=== PATIENT | male | born 1935 | race Caucasian/White ===

== ENCOUNTER 2016-07-23 06:51 | Inpatient (IN) | payer MEDICARE ==
[2016-07-12 13:30] LABS: BASOPHILS 0.2 %; BASOPHILS ABSOLUTE 0.01 10/3/uL (0.0-0.16); EOSINOPHILS 1.2 %; EOSINOPHILS ABSOLUTE 0.08 10/3/uL (0.0-0.53); HEMATOCRIT 41.3 % (40.0-51.0); HEMOGLOBIN 12.9 g/dL (13.6-17.8); IMMATURE GRANULOCYTES 0.2 %; IMMATURE GRANULOCYTES ABSOLUTE 0.01 10/3/uL (0.0-0.11); LYMPHOCYTES 29.6 %; LYMPHOCYTES ABSOLUTE 1.95 10/3/uL (0.67-4.30); MEAN CORPUS HGB CONC 31.2 g/dL (32.0-36.0); MEAN CORPUSCULAR HEMOGLOB 24.8 pg (26.0-34.0); MEAN CORPUSCULAR VOLUME 79.3 fL (80-100); MEAN PLATELET VOLUME 11.1 fL (9.2-13.0); MONOCYTES 7.6 %; NEUTROPHILS 61.2 %; NEUTROPHILS ABSOLUTE 4.04 10/3/uL (2.02-8.40); PLATELET COUNT 191 10/3/uL (150-400); RBC DISTRIBUTION WIDTH 16.7 % (12.0-16.0); RED CELL COUNT 5.21 10/6/uL (4.7-6.1); WHITE BLOOD CELLS 6.6 10/3/uL (4.5-10.5)
[2016-07-12 13:32] LABS: MANUAL DIFF NO %
[2016-07-12 13:36] LABS: ASCORBIC ACID (UR NOT ORDER) NEG (NEG); BILIRUBIN, URINE NEGATIVE (NEG); KETONE, URINE NEGATIVE (NEG); LEUKOCYTE ESTERASE(NOT OR NEG (NEG); WBC (NOT ORDERED) (RFLEX) < 1 (0-5)
[2016-07-12 13:39] LABS: INTERNATIONAL NORMAL RATI 1.2 UNITS (-)
[2016-07-12 13:47] LABS: B NATRIURETIC PEPTIDE (BNP) 15.2 PG/ML (< 100.0)
[2016-07-12 13:50] LABS: ALBUMIN 3.9 G/DL (3.5-5.0); ALKALINE PHOSPHATASE 100 U/L (45-117); BUN (BLOOD UREA NITROGEN) 19 MG/DL (6-23); CALCIUM, SERUM 8.9 MG/DL (8.5-10.4); CHLORIDE, SERUM 107 MMOL/L (96-112); CO2 (CARBON DIOXIDE) 28 MMOL/L (24-34); CREATININE 1.75 MG/DL (0.70-1.30); GFR AFRICAN AMERICAN 41 ML/MIN (>=60); GFR NON AFRICAN AMERICAN 35 ML/MIN (>=60); GLOBULIN 3.8 G/DL (2.5-4.1); GLUCOSE, SERUM 146 MG/DL (60-99); POTASSIUM, SERUM 4.7 MMOL/L (3.5-5.3); SGOT(AST) 32 U/L (5-40); SGPT(ALT) 41 U/L (5-65); SODIUM, SERUM 140 MMOL/L (135-148); TOTAL BILIRUBIN 0.4 MG/DL (0-1.2); TOTAL PROTEIN 7.7 G/DL (6.0-8.5)
[2016-07-12 13:54] LABS: GLYCOHEMOGLOBIN (HbA1c) 7.3 % (4.7-6.1)
--- NOTE | ~2016-07-23 | OP ---
Record Of Operation [facility] [address] [place]. [address] NAME: OLGA PLASCENCIA : 33 STATUS : ADM IN PAT#: [id number] AGE: 81 ADM/REG DATE : 07/23/16 MR#: [id number] REPORT SERV DATE: 07/23/16 DICTATED BY: ADELINA TREVIZO DATE: 07/23/16 REPORT STATUS : Draft TRANSCRIBED BY: ARISTEO DATE: 07/23/16 DATE OF PROCEDURE: PROCEDURE: Left transfemoral transcatheter aortic valve replacement using 23 mm Barton S3 valve. INDICATIONS FOR PROCEDURE: Mr. Olga Plascencia is an 81-year-old gentleman with severe aortic stenosis. By catheterization, the valve area was 1.0, with a mean gradient of 19. By echocardiogram, the mean gradient was 24, peak gradient 40, valve area 0.9. He presented with class III heart failure symptoms. His history is also remarkable for chronic kidney disease, hypertension, hyperlipidemia, diabetes, sleep apnea, history of prostate cancer, and shoulder replacement surgery. His predicted risk mortality by the STS score was 4.2%, predicted morbidity mortality 23%. Predicted mortality by the EuroSCORE is 3.7%. Both Dr. Salcedo and Dr. Hubbard felt that he was at high risk for surgical aortic valve replacement and should proceed with TAVR. The entire [facility] valve team felt he was a better candidate for TAVR procedure. POSTOPERATIVE DIAGNOSES: Successful implantation of the Barton 23-mm valve via the left transfemoral approach. OPERATORS: Dr. Hubbard, Dr. Trevizo, and Dr. Bee. OPERATIVE TECHNIQUE: The patient was prepped and draped in the usual sterile fashion. He received MAC anesthesia, propofol. He was not intubated. He did not have a Manzano catheter. He did have a radial A-line and a right heart catheter in position. The right and left groins were anesthetized with lidocaine 1% of 12 mL. Access of both the left and right femoral artery was easily obtained using the micropuncture technique, angiogram confirmed access to common femoral artery. A 6-[place] sheaths were placed in both. A 6-[place] sheath was placed in the right femoral vein as well. The pacemaker was inserted via the right femoral venous sheath, the pigtail catheter through the right femoral artery sheath. Two ProGlide sutures were placed in the left femoral artery at the 10 o'clock and 2 o'clock position in the pre-close technique. The 6-[place] sheath was reinserted. The J-wire was advanced into the ascending aorta, a multipurpose catheter was placed over that, then the Lunderquist wire was exchanged through that multipurpose catheter. We then placed the Barton sheath. Heparin was delivered, the activating clotting time was therapeutic throughout the procedure. Heparin was delivered just prior to the insertion of that sheath. We placed an AL1 catheter over the Lunderquist wire into the ascending aorta, we then crossed the aortic valve without difficulty using the AL1 and a straight wire. Once the wire was in the left ventricle, the catheter was advanced, exchange length J-wire was used. The pigtail catheter was placed in the left ventricle. We obtained simultaneous pressures between the left ventricle and the ascending aorta. Record Of Operation [facility] [address] [facility] [place]. [address] NAME: OLGA PLASCENCIA : 33 STATUS : ADM IN PAT#: [id number] AGE: 81 ADM/REG DATE : 07/23/16 MR#: [id number] REPORT SERV DATE: 07/23/16 DICTATED BY: ADELINA TREVIZO DATE: 07/23/16 REPORT STATUS : Draft TRANSCRIBED BY: ARISTEO DATE: 07/23/16 We then inserted the preshaped Amplatz extra-stiff wire in the left ventricle. We then delivered the Barton 23-mm valve. The valve was assembled in the descending thoracic aorta. We flexed the delivery system. We crossed the kobuk aortic valve without difficulty. With rapid ventricular pacing, the valve was successfully deployed, with balloon inflation. The thoracic aortogram and the chest wall echo demonstrated mild aortic insufficiency. An additional 1 mL of contrast was placed in the delivery balloon. The balloon was readvanced into the valve. With rapid ventricular pacing, the balloon was reinflated. Chest wall echo then demonstrated trace AI. We then measured simultaneous pressures between the left ventricle and ascending aorta using a pigtail catheter. Pullback pressures were then obtained. We then removed the Barton sheath. The two ProGlide sutures were tightened. Completion angiogram demonstrated no extravasation and no stenosis at the access site. The right femoral artery sheath was removed. A ProGlide device was used to close the right femoral artery. The pacemaker and right heart catheter was removed. The left venous sheath was left in place. A total rapid pacing time was 40 seconds. The actual time of the valve deployment was 17:39 hours. The cardiac output pre-deployment was 3.5 L/minute, post deployment 4.2 L/minute. The valve area pre-deployment was 0.9 sq cm, post deployment 1.7 sq cm. The blood pressure pre-deployment was 131/66, mean 86, heart rate 57. Post deployment blood pressure was 105/50, mean 71 with a heart rate of 68. The pre-implant aortic valve gradient was 28 mmHg mean, 30 mm [id number]. Post-deployment, the gradient was 7 mmHg mean, 7 mmHg peak-to- peak. Total contrast used was 95 mL. The total blood loss was less than 50 mL. The total radiation dose was 1333. The AI index was 31. There was trace aortic insufficiency by chest wall echo. In short, the patient underwent successful delivery of a 23 mm Barton S3 valve via left transfemoral approach, there was trace AI post postprocedure. The gradient decreased from 30 mmHg to 7 mmHg. The patient will be treated with aspirin and clopidogrel. ASCENCION/ARISTEO Adelina Trevizo, Record Of Operation [address] [address] NAME: OLGA PLASCENCIA : 33 STATUS : ADM IN PAT#: [id number] AGE: 81 ADM/REG DATE : 07/23/16 MR#: [id number] REPORT SERV DATE: 07/23/16 DICTATED BY: ADELINA TREVIZO DATE: 07/23/16 REPORT STATUS : Draft TRANSCRIBED BY: ARISTEO DATE: 07/23/16 Jonathan / [id number] CC: Chano Hubbard MD
--- NOTE | ~2016-07-23 | OP ---
Record Of [place] [id number] [facility] [place]. [address] NAME: OLGA ESPINOSA : 33 STATUS : ADM IN [facility]#: [id number] AGE: 81 ADM/REG DATE : 07/23/16 MR#: [id number] REPORT SERV DATE: 07/23/16 DICTATED BY: CHANO LOO DATE: 07/23/16 REPORT STATUS : Draft TRANSCRIBED BY: MODL DATE: 07/23/16 DATE OF PROCEDURE: 07/23/2016 ATTENDING SURGEONS: 1. Chano Loo MD. 2. Jori Trevizo M.D. 3. Demetrius Bee M.D. SUPERVISING PRODUCER: Sanju Dowell M.D., Ph.D, F.A.C.C. PREOPERATIVE DIAGNOSES: 1. Aortic stenosis. 2. Chronic kidney disease, stage III. 3. Coronary artery disease. 4. Hypertension. 5. Hyperlipidemia. 6. Oral-controlled diabetes mellitus. 7. Obstructive sleep apnea. 8. History of prostate cancer. POSTOPERATIVE DIAGNOSES: 1. Aortic stenosis. 2. Chronic kidney disease, stage III. 3. Coronary artery disease. 4. Hypertension. 5. Hyperlipidemia. 6. Oral-controlled diabetes mellitus. 7. Obstructive sleep apnea. 8. History of prostate cancer. PROCEDURES PERFORMED: 1. TAVR left transfemoral with a 23 mm Amina III pericardial valve. 2. ProGlide closure, left femoral artery x2. 3. ProGlide closure of the right femoral artery x1. 4. Right transfemoral temporary venous pacemaker placement. 5. Ascending aortography. 6. Left iliofemoral runoff aortography. 7. Transthoracic echocardiography. INDICATIONS: This is an 81-year-old gentleman with a history of chronic kidney disease, stage III; coronary artery disease; hypertension with a mildly depressed EF of 54% with mild left ventricular diastolic dysfunction with a mean gradient across his valve on echo of 24 and calculated aortic valve area of 0.88. The STS risks were calculated and was felt to be elevated risk at around 4% to 5% putting him in the intermediate risk. I saw him in the office, felt his risks were actually slightly higher, given his relative frailty, he failed his strength in walk test. Dr. Salcedo evaluated the patient and concurred. The patient Record Of [place] [id number] [facility] [place]. [address] NAME: OLGA ESPINOSA : 33 STATUS : ADM IN PAT#: [id number] AGE: 81 ADM/REG DATE : 07/23/16 MR#: [id number] REPORT SERV DATE: 07/23/16 DICTATED BY: CHANO LOO DATE: 07/23/16 REPORT STATUS : Draft TRANSCRIBED BY: MODL DATE: 07/23/16 was brought to the operating room. FINDINGS AT THE TIME OF OPERATION: 1. Total time rapid pacing 40 seconds. Actual time of TAVR deployment 5:39 p.m. Cardiac output pre-deployment was 3.9, post-deployment 4.2. Valve area pre-deployment was 0.9 cm2, post-deployment was 1.73 cm2. Pre and post implant aortic, systolic and diastolic pressures; pre-implant, systolic was 131, diastolic 66, mean 86, heart rate 57; post- implant, systolic 105, diastolic 50, mean 71, heart rate 68; pre-implant AV gradient mean of 28, peak of 30; post-implant AV gradient mean of 9, peak of 9. CONTRAST USED: 95 mL. Total fluoro time was 12.1 minutes. Estimated blood loss was less than 50 mL. Total mGy used was 1333. Aortic index was 31. There was trace perivalvular leak. Following valve deployment, the AI index was 31. There was a mild left femoral artery stenosis on the iliofemoral runoff, this was felt to be mild. DESCRIPTION OF PROCEDURE: The patient was brought to the hybrid operating suite and laid supine on the operating room table. After satisfactory induction of monitored anesthesia care, the patient's abdomen, groins, and legs were prepped with Hibiclens and ChloraPrep, draped with Ioban. Using micropuncture technique, the right femoral artery, left femoral artery, and left femoral vein were all accessed. The arterial sticks performed contrast angiography that confirmed placement of the catheters and each of these micropuncture catheters were exchanged for 6-Turkish introducer sheath. The right transfemoral temporary venous pacemaker placement was floated into the right ventricle under fluoroscopic guidance. Confirmatory placement by pacing thresholds was measured. A pigtail catheter and guidewire were advanced into the ascending aorta and into the right coronary sinus to confirm deployment angles using contrast aortography. Pigtail wires were then advanced into the right femoral artery and a pigtail was placed, and the J-wire was placed in the left femoral artery and the 6-Turkish sheath was removed. Two ProGlide closures were then placed in the left femoral artery. A straight wire was then advanced into the ascending aorta under fluoroscopic guidance. A pigtail catheter was advanced over the guidewire. The Lunderquist wire was then advanced through the pigtail catheter into the ascending aorta. The TAVR sheath was then advanced into the descending aorta and the patient was anticoagulated with heparin. The AL1 catheter was advanced over the Lunderquist wire, which was removed. A soft straight wire was then used across the valve and the AL1 catheter was then advanced across the valve and exchanged for a pigtail catheter. Simultaneous pressures in the ventricle and ascending aorta were then measured. The extra stiff wire was then placed in the left ventricle and the pigtail catheter was removed. The valve delivery system were brought up on the field, orientation of the valve was confirmed, and the valve delivery system was advanced into the descending thoracic aorta. The balloon was backed onto the valve delivery system. The valve delivery system was then advanced with the valve across Record Of Operation [facility] [address] [place]. [address] NAME: OLGA ESPINOSA : 33 STATUS : ADM IN [facility]#: [id number] AGE: 81 ADM/REG DATE : 07/23/16 MR#: [id number] REPORT SERV DATE: 07/23/16 DICTATED BY: CHANO LOO DATE: 07/23/16 REPORT STATUS : Draft TRANSCRIBED BY: MODL DATE: 07/23/16 the aortic arch into the ascending aorta and across the valve. Positioning was confirmed with fluoro. Angles for deployment of the valve were then placed. The pressure assembly was then backed up into the ascending aorta. Temporary rapid ventricular pacing was performed. Contrast aortography using a power injection was confirmed positioning of the valve and the valve was deployed using the balloon. Once the valve was deployed, the balloon was deflated, then delivery system was backed into the descending thoracic aorta. Contrast aortography was then performed through the pigtail catheter demonstrating mild AI. Transthoracic echocardiography was performed by Dr. Dowell and this confirmed the presence of mild AI. The balloon was then replaced across the valve and rapid ventricular pacing was performed again. Post balloon dilatation was performed. Once the balloon dilatation was completed, the balloon was deflated and the delivery system was backed up into the descending thoracic aorta. Transthoracic echocardiography was again performed by Dr. Dowell and this confirmed a decrease in the aortic insufficiency which was felt to be trace. Pigtail catheter was passed up the extra stiff wire and placed in the ventricle and the wire was removed, and simultaneous pressure recordings were made in the ventricle and the aorta. Then, the pigtail catheter was brought back into the ascending aorta and out through the valve sheath. The sheath was then removed from the left femoral artery and ProGlide closure device fully deployed and secured. The pigtail catheter in the right femoral artery was then brought down to the bifurcation and contrast aortography was performed with left iliofemoral runoff demonstrating good patency of the left femoral artery with mild area of stenosis just above the deployment of the ProGlide catheters. Femoral and pedal pulses were present and it was elected to leave the small stenosis alone. The pigtail catheter was removed over a guidewire and the ProGlide closure of the right femoral artery was performed. The temporary pacemaker was removed from the left femoral vein and the [place] was removed. The patient tolerated the procedure well. There were no complications. The patient was taken to the CVICU in stable condition. [facility]/MODL Chano Loo MD / [id number] CC: Chano Loo MD
[~2016-07-23 06:51] MED LIST: AMARYL2 PO; ARICEPT5 PO; ASAB PO; AVALIDE1 TA1 PO; COQ PO; JANUVIA50 PO; JUICE PLUS; LEVOTHYROXIN25 MCG PO; LYRICA75 PO; MAGOX4 PO; NIASPAN500 PO; NORV5 PO; PRAVAC PO; PRIN20 PO; TRAVATAN EYE DROPS T; VITAMIN B-121000 MC1 SL
[2016-07-23 18:44] LABS: HEMOGLOBIN 11.5 g/dL (13.6-17.8); PLATELET COUNT 141 10/3/uL (150-400)
[2016-07-23 18:45] LABS: HEMATOCRIT 36.6 % (40.0-51.0)
[2016-07-23 18:53] LABS: INTERNATIONAL NORMAL RATI 1.5 UNITS (-)
[2016-07-23 18:59] LABS: BUN (BLOOD UREA NITROGEN) 16 MG/DL (6-23); CALCIUM, SERUM 8.2 MG/DL (8.5-10.4); CHLORIDE, SERUM 108 MMOL/L (96-112); CO2 (CARBON DIOXIDE) 25 MMOL/L (24-34); CREATININE 1.45 MG/DL (0.70-1.30); GFR AFRICAN AMERICAN 51 ML/MIN (>=60); GFR NON AFRICAN AMERICAN 44 ML/MIN (>=60); POTASSIUM, SERUM 4.3 MMOL/L (3.5-5.3); SODIUM, SERUM 135 MMOL/L (135-148)
[2016-07-23 19:00] LABS: GLUCOSE, SERUM 109 MG/DL (60-99); PROTIME (NOT ORD) 18.1 SEC (12.0-14.5)
[2016-07-23 19:11] LABS: PARTIAL THROMBO TIME > 150.0 SEC (22.5-37.2)
[2016-07-24 01:20] LABS: HEMATOCRIT 35.9 % (40.0-51.0); HEMOGLOBIN 11.4 g/dL (13.6-17.8)
[2016-07-24 01:31] LABS: BUN (BLOOD UREA NITROGEN) 17 MG/DL (6-23); CHLORIDE, SERUM 110 MMOL/L (96-112); CO2 (CARBON DIOXIDE) 26 MMOL/L (24-34); GFR AFRICAN AMERICAN 53 ML/MIN (>=60); GFR NON AFRICAN AMERICAN 46 ML/MIN (>=60); GLUCOSE, SERUM 101 MG/DL (60-99); POTASSIUM, SERUM 4.3 MMOL/L (3.5-5.3); SODIUM, SERUM 141 MMOL/L (135-148)
[2016-07-24 03:41] LABS: BASOPHILS 0.1 %; BASOPHILS ABSOLUTE 0.01 10/3/uL (0.0-0.16); EOSINOPHILS 0 %; HEMATOCRIT 35.2 % (40.0-51.0); HEMOGLOBIN 11.1 g/dL (13.6-17.8); IMMATURE GRANULOCYTES 0.1 %; IMMATURE GRANULOCYTES ABSOLUTE 0.01 10/3/uL (0.0-0.11); LYMPHOCYTES 10.1 %; LYMPHOCYTES ABSOLUTE 0.96 10/3/uL (0.67-4.30); MEAN CORPUS HGB CONC 31.5 g/dL (32.0-36.0); MEAN CORPUSCULAR HEMOGLOB 25.1 pg (26.0-34.0); MEAN CORPUSCULAR VOLUME 79.6 fL (80-100); MEAN PLATELET VOLUME 10.1 fL (9.2-13.0); MONOCYTES 6.1 %; MONOCYTES ABSOLUTE 0.58 10/3/uL (0.21-1.20); NEUTROPHILS 83.6 %; NEUTROPHILS ABSOLUTE 7.97 10/3/uL (2.02-8.40); PLATELET COUNT 122 10/3/uL (150-400); RBC DISTRIBUTION WIDTH 16.3 % (12.0-16.0); RED CELL COUNT 4.42 10/6/uL (4.7-6.1)
[2016-07-24 03:44] LABS: MANUAL DIFF NO %; WHITE BLOOD CELLS 9.5 10/3/uL (4.5-10.5)
[2016-07-24 03:54] LABS: BUN (BLOOD UREA NITROGEN) 15 MG/DL (6-23); CALCIUM, SERUM 7.8 MG/DL (8.5-10.4); CHLORIDE, SERUM 111 MMOL/L (96-112); CO2 (CARBON DIOXIDE) 25 MMOL/L (24-34); GFR AFRICAN AMERICAN 53 ML/MIN (>=60); GFR NON AFRICAN AMERICAN 46 ML/MIN (>=60); GLUCOSE, SERUM 84 MG/DL (60-99); POTASSIUM, SERUM 4.3 MMOL/L (3.5-5.3); SODIUM, SERUM 142 MMOL/L (135-148)
[2016-07-24] MEDS ORDERED: NORV5 PO (11:46)
== END 2016-07-24 15:17 | disposition home or self-care (01) | DRG 267 ==
LOC: SDC/OF 06:51 → CVICU 18:04
PROVIDERS: Internal Medicine Cardiovascular Disease; Thoracic Surgery (Cardiothoracic Vascular Surgery)
PROC: 02RF38Z Replacement of Aortic Valve with Zooplastic Tissue, Percutaneous Approach (ICD-10-PCS; principal; 2016-07-23 10:00)
PROC: B246YZZ Ultrasonography of Right and Left Heart using Other Contrast (ICD-10-PCS; 2016-07-23 10:00)
DX: I35.0 Nonrheumatic aortic (valve) stenosis (principal); N18.3 Chronic kidney disease, stage 3 (moderate); E11.9 Type 2 diabetes mellitus without complications; I12.9 Hypertensive chronic kidney disease with stage 1 through stage 4 chronic kidney disease, or unspecified chronic kidney disease; I25.10 Atherosclerotic heart disease of native coronary artery without angina pectoris; Z00.6 Encounter for examination for normal comparison and control in clinical research program; E78.5 Hyperlipidemia, unspecified; G47.33 Obstructive sleep apnea (adult) (pediatric); Z85.46 Personal history of malignant neoplasm of prostate; Z79.84 Long term (current) use of oral hypoglycemic drugs; Z79.899 Other long term (current) drug therapy
CPT/HCPCS: 36415; 71010; 71020; 80048; 80053; 81001; 82330; 82803; 82947; 82962; 83036; 83735; 83880; 84132; 84295; 85014; 85018; 85025; 85049; 85347; 85610; 85730; 86850; 86900; 86901; 87641; 93005; 93306; 93312; 93320; 93325; A9270-GY; C1769; J0690; J2250; J2405; J3010; J3480; P9045